=== PATIENT | male | born 1985 | race Caucasian/White ===

== ENCOUNTER 2020-10-28 17:09 | Emergency (ER) | payer OTHER ==
[2020-10-28 19:15] LABS: BASOPHIL 0.8 % (0-2); EOSINOPHIL 2.1 % (0-5); HCT 44.7 % (42.0-52.0); HGB 14.8 g/dl (13.2-18.0); MCH 29.5 pg (25.0-31.0); MCHC 33.1 g/dL (32.0-36.0); MONOCYTE 15.1 % (0-12); NEUTROPHIL 56.2 % (41-80); NRBC 0; PLT 223 K/uL (150-400); RBC 5.02 M/uL (4.70-6.00); RDW 12.9 % (11.5-14.0); WBC 6.1 K/uL (4.0-10.5)
[2020-10-28 19:25] LABS: BUN/CREAT RATIO (CALC) 18.2 RATIO; CREATININE 1.32 mg/dL (0.67-1.17); POTASSIUM 4.3 mmol/L (3.5-5.1)
[2020-10-28] MEDS ORDERED: MAGICMW SSW (22:23)
[2020-10-28] MEDS ORDERED: MEDROL 4MG DOSEP4 MG PO (22:23)
== END 2020-10-28 23:10 | disposition home or self-care (01) ==
LOC: FER 17:09
PROVIDERS: Nurse Practitioner Family
DX: K12.1 Other forms of stomatitis (principal); J02.0 Streptococcal pharyngitis; E86.0 Dehydration
CPT/HCPCS: 36415; 80048; 85025; 96372; J0561; J1100; J1885; J7030